=== PATIENT | male | born 1990 | race Caucasian/White ===

== ENCOUNTER 2025-07-07 02:06 | Emergency (ER) | payer OTHER ==
[~2025-07-07] VITALS: Ht 188 cm; Wt 63.5 kg
[2025-07-07] MEDS ORDERED: TDAP [DIPH/PERTUSSIS/TET] 0.5 ML VIAL IM ONE (02:57)
[2025-07-07] MEDS: TDAP [DIPH/PERTUSSIS/TET] 0.5 ML VIAL IM ONE (03:01)
[2025-07-07 03:17] VITALS: BP 149/83; TEMP 98.4; O2SAT 98
== END 2025-07-07 03:18 ==
LOC: ER 02:13
DX: S80.811A Abrasion, right lower leg, initial encounter (principal); R07.81 Pleurodynia; Z65.3 Problems related to other legal circumstances; Z91.010 Allergy to peanuts; V43.52XA Car driver injured in collision with other type car in traffic accident, initial encounter; Y93.89 Activity, other specified; Y92.488 Other paved roadways as the place of occurrence of the external cause; Y99.8 Other external cause status
CPT/HCPCS: 71100-TC; 90715